=== PATIENT | male | born 1950 | race Caucasian/White ===

== ENCOUNTER → 2022-08-27 14:11 | Outpatient (CLI) | payer MEDICARE, SELFPAY ==
[2022-08-27 16:07] LABS: Add Manual Diff / Slide Review NO; Basophils Absolute Auto 100 /uL (0-100); Basophils Percent Auto 0.7 % (0-2); Eosinophils Absolute Auto 100 /uL (0-450); Eosinophils Percent Auto 1.6 % (2-4); Hematocrit 43.8 % (41-53); Hemoglobin 15.1 g/dL (13.5-17.5); Lymphocytes Absolute Auto 2100 /uL (1100-4500); Lymphocytes Percent Auto 25.6 % (25-40); Mean Corpuscular HGB Conc 34.5 % (30-36); Mean Corpuscular Hemoglobin 31.9 PG (26-34); Mean Corpuscular Volume 92.3 fL (80-100); Monocytes Absolute Auto 700 /uL (0-900); Monocytes Percent Auto 8.5 % (3-14); Neutrophils Absolute Auto 5300 /uL (1500-7000); Neutrophils Percent Auto 63.6 % (50-75); Platelet Count 185 X10^3/uL (150-400); Red Blood Cell Count 4.75 X10^6/uL (4.5-5.9); Red Cell Distribution Width 13.1 % (11.6-14.8); White Blood Cell Count 8.4 X10^3/uL (4.5-11.0)
[2022-08-27 16:39] LABS: Alanine Aminotransferase 22 IU/L (<50); Albumin 4.6 g/dL (3.5-5.0); Albumin Globulin Ratio 1.4 (1.0-2.8); Alkaline Phosphatase 86 U/L (38-126); Aspartate Aminotransferase 23 IU/L (17-59); BUN Creatinine Ratio 16.9 (6-22); Bilirubin Total 0.5 mg/dL (0.2-1.3); Blood Urea Nitrogen 14 mg/dL (9-20); Calcium 9.7 mg/dL (8.4-10.2); Carbon Dioxide 29 mmol/L (22-32); Chloride 101 mmol/L (98-107); Estimated Glomerular Filt Rate > 60 mL/min (>60); Globulin 3.3 g/dL (1.7-4.1); Glucose 95 mg/dL (80-110); HEMOLYSIS < 15 (0-50); Potassium 4.4 mmol/L (3.4-5.1); Sodium 140 mmol/L (137-145); Total Protein 7.9 g/dL (6.3-8.2)
[2022-08-27 16:42] LABS: High Sensitivity CRP - Cardiac 1.1 mg/L (1.0-3.0)
[2022-08-27 17:04] LABS: Thyroid Stimulating Hormone 1.29 uIU/mL (0.47-4.68)
[2022-08-28 03:36] LABS: x Labcorp Estim. Avg Glu (eAG) 114 mg/dL (.); x Labcorp Hemoglobin A1c 5.6 % (4.8-5.6)
[2022-08-31 12:07] LABS: Acetylcholine Receptor Bind AB 0.23 nmol/L (0.00-0.24)
[2022-09-01 10:25] LABS: MuSK Antibodies <1.0 U/mL (.)
[2022-09-02 13:04] LABS: Acetylcholine Rec Blocking AB 17 % (0-25)
== END ==
PROVIDERS: PCP Ophthalmology; Referring Provider Ophthalmology; Visit Provider Ophthalmology
DX: G51.32 Clonic hemifacial spasm, left (principal); H53.2 Diplopia; H02.402 Unspecified ptosis of left eyelid; H02.834 Dermatochalasis of left upper eyelid
CPT/HCPCS: 80053; 83036; 83519; 84443; 85025; 86140

== ENCOUNTER → 2022-09-01 11:09 | Outpatient (CLI) | payer MEDICARE, BC, SELFPAY ==
--- NOTE | 2022-09-01 | DI.MRI.S_ITS ---
PROCEDURE: MR HEAD/BRAIN WO/W CON INDICATIONS: Clonic hemifacial spasm/diplopia TECHNIQUE: Noncontrast axial T1 spin echo, axial T2 fast spin echo, sagittal and axial FLAIR, coronal T2 fast spin echo, axial gradient echo, axial diffusion and ADC through the brain. After the administration of contrast, axial and coronal and sagittal T1 spin echo with fat saturation through the brain. In this patient, additional fat saturated T1 weighted axial pre and postcontrast images were obtained through the orbits at, as well as facets rated T1 weighted postcontrast coronal images through the orbits. COMPARISON: [facility], MR, MR ANGIO HEAD WO CON, 09/01/2022, 11:40. FINDINGS: Image quality: Excellent. CSF spaces: Basal cisterns are patent. No extra-axial fluid collections. Ventricles are normal in size and shape. Brain: No midline shift. No intracranial bleeds or masses. No abnormal intracranial enhancement. There is cerebral volume loss for age. There is periventricular white matter chronic small vessel ischemic change. The brainstem appears normal. Diffusion-weighted images demonstrate no acute ischemic insults. No chronic ischemic insults. Normal intravascular flow voids are present. Skull and face: Calvarial marrow is normal in signal. In this patient with this given history, scrutiny is given to the orbits. No significant orbital abnormality can be seen. No masses or abnormal enhancement can be seen. Sinuses: Extensive right-sided paranasal sinus disease can be seen, with complete opacification of the right frontal sinus, the right ethmoid air cells, and the right maxillary sinus. There is partial opacification of the right sphenoid sinus. On these images, no findings of bony violation or intracranial extension can be seen associated with the right-sided paranasal sinus disease. Mild mucosal thickening can be seen within the left paranasal sinuses. No abnormal fluid is seen within the mastoid air cells. IMPRESSION: No masses or abnormal enhancement can be seen to explain the patient's presenting history. Extensive right-sided paranasal sinus disease seen. Dictated by: Denis Bob M.D. on 09/01/2022 at 12:04 Approved by: Denis Bob M.D. on 09/01/2022 at 12:07
--- NOTE | 2022-09-01 | DI.MRI.S_ITS ---
PROCEDURE: MR ANGIO HEAD WO CON INDICATIONS: Clonic hemifacial spasm/diplopia TECHNIQUE: Noncontrast axial 3-D [id number] MR angiogram, with 3-dimensional maximum intensity projection (MIP) reformats of the internal carotid arteries and posterior circulation then performed. COMPARISON: [facility], , MR HEAD/BRAIN WO/W CON, 09/01/2022, 11:51. FINDINGS: Image quality: Diagnostic, with note made of motion artifact. Anterior circulation: Intracranial internal carotid arteries demonstrate normal size and intraluminal flow signal. There is a diminutive left A1 segment, with a corresponding robust right A1 segment. This is considered to be a normal developmental variant of the wiyot of [place], of typically no clinical consequence. The flow within the paired anterior cerebral arteries is otherwise normal and symmetric. The flow within the middle cerebral arteries is normal and symmetric. The anterior communicating artery is seen. No stenoses, occlusions, or aneurysms. Posterior circulation: Visualized portions of the vertebral arteries demonstrate normal caliber, and join to form a normal appearing basilar artery. The flow within the posterior cerebral arteries is normal and symmetric. No stenoses, occlusions, or aneurysms. IMPRESSION: Brain MR angiogram within normal limits. Dictated by: Denis Bob M.D. on 09/01/2022 at 12:02 Approved by: Denis Bob M.D. on 09/01/2022 at 12:03
== END ==
PROVIDERS: Referring Provider Ophthalmology; Visit Provider Ophthalmology
DX: H53.2 Diplopia (principal); G51.39 Clonic hemifacial spasm, unspecified; J32.8 Other chronic sinusitis; H02.402 Unspecified ptosis of left eyelid; H02.834 Dermatochalasis of left upper eyelid
CPT/HCPCS: 70544; 70553

== ENCOUNTER 2024-08-30 14:37 | Emergency (ER) | payer MEDICARE, BC, SELFPAY ==
[2024-08-30] VITALS (8 sets, daily range): BP systolic 132–175; BP diastolic 78–92; PULSE 73–94; RESP 18; TEMP 37.1; O2SAT 97–98; BMI 39.0
--- NOTE | 2024-08-30 18:20 | ED.MALEGU ---
HPI - Male Genitourinary General Chief complaint: Urogenital-Male Stated complaint: Groin Pain Time Seen by Provider: 08/30/24 18:20 Source: patient Mode of arrival: Ambulatory History of Present Illness HPI Narrative: Patient is a 73-year-old male with a past medical history of hypertension comes into the ED from home for evaluation of scrotal swelling. States it started yesterday, has no actual pain, states that he has also been having some right lower quadrant abdominal pain however he states that this has been ongoing and persistent for ?a long time. He states that he is only here because he noticed swelling to his scrotum, states that it has slightly improved since yesterday but otherwise still swollen. No trauma no falls. No past current history or concerns for STI/STDs. Patient not complaining of any other symptoms at this time. No issues with urination. Related Data Previous Rx's ?Medication ?Instructions ?Recorded sulfamethoxazole 800 1 tab PO BID 7 days #14 tabs 08/30/24 mg-trimethoprim 160 mg tablet (Bactrim DS) Allergies Allergy/AdvReac Type Severity Reaction Status Date / Time No Known Drug Allergies Allergy Unverified 08/18/23 09:14 Review of Systems Review of Systems Narrative: General: Denies fever, chills, weight loss HEENT: Denies headache, eye drainage, eye irritation, head trauma, sore throat, voice change Cardiovascular: Denies any chest pain, palpitations, tachycardia Respiratory: Denies any shortness of breath, cough, wheeze, stridor GI/: Positive scrotal swelling Denies any abdominal pain, nausea, vomiting, diarrhea, bright red blood per rectum, melanotic stools, urinary frequency, urinary retention, dysuria, hematuria MSK: Denies any joint pain, muscle pains, swelling Skin: Denies any rashes, lesions, discoloration Neuro: Denies any headache, lightheadedness, dizziness, fainting, weakness Psych: Denies SI/HI Patient History Social History Smoking Status: Never smoker Smoking Status: Never smoker Exam Narrative Exam Narrative: General: Cooperative, well-developed, not in acute distress HEENT: Normocephalic, atraumatic, PERRLA, normal sclera, eyelids normal Neck: Active full range of motion, atraumatic Chest: Normal to inspection, negative crepitus, no overlying erythema ecchymosis Respiratory: Normal respiratory effort, not in acute respiratory distress, clear to auscultation bilaterally negative cough, wheeze, tachypnea, rhonchi, rales Cardiology: Regular rate rhythm negative gallop, murmur, rubs GI/: No tenderness to palpation, soft, non rigid, normal to inspection, exam: Erythema noted to the scrotum, however no crepitus noted no pain with palpation, the penis itself without any gross deformity no discharge starting to the head of the meatus. MSK: Full active range of motion in all 4 extremities, atraumatic, no tenderness to palpation of any bony prominences Skin: No rashes or lesions noted Neuro: Alert awake oriented x3, moves all 4 extremities spontaneously, cranial nerves intact, able to answer all questions appropriately follows commands appropriately Psych: Cooperative, negative suicidal or homicidal ideations Initial Vital Signs Initial Vital Signs: Vital Signs Temperature 98.7 F 08/30/24 14:51 Pulse Rate 94 H 08/30/24 14:51 Respiratory Rate 18 08/30/24 14:51 Blood Pressure 164/78 H 08/30/24 14:51 Pulse Oximetry 97 08/30/24 14:51 Oxygen Delivery Method Room Air 08/30/24 14:51 Course Orders Ordered: ED Orders 08/30/24 18:20 US scrotum Stat 08/30/24 18:22 CT abdomen pelvis w con Stat 08/30/24 18:36 CRP [C-Reactive Protein Quant] Stat Complete Blood Count AUTO DIFF Stat Comprehensive Metabolic Panel Stat ESR [Erythrocyte Sedimentation Rate] Stat Lactate (Lactic Acid) Stat Lipase Stat MAG [Magnesium] Stat Discontinued Medications Sodium Chloride (Normal Saline 0.9%) 1,000 mls @ 1,000 mls/hr IV BOLUS ONE Stop: 08/30/24 19:19 Last Infusion: 08/30/24 20:12 Dose: Infused Documented By: Admin: 08/30/24 18:40 Dose: 1,000 mls/hr Documented By: TRUMAN Ketorolac Tromethamine (Ketorolac 30 Mg/Ml Vial) 30 mg IV NOW ONE Stop: 08/30/24 18:21 Last Admin: 08/30/24 18:37 Dose: 30 mg Documented By: TRUMAN Vital Signs Vital signs: Vital Signs - 8 hr 08/30/24 14:51 08/30/24 19:00 08/30/24 19:01 Temperature 98.7 F Pulse Rate 94 H 74 74 Respiratory Rate 18 Blood Pressure 164/78 H Pulse Oximetry 97 97 97 Oxygen Delivery Method Room Air 08/30/24 19:01 08/30/24 19:13 08/30/24 19:13 Temperature Pulse Rate 78 Respiratory Rate Blood Pressure 171/92 H 175/85 H Pulse Oximetry 97 Oxygen Delivery Method 08/30/24 19:30 08/30/24 19:30 Temperature Pulse Rate 73 Respiratory Rate Blood Pressure 153/83 H Pulse Oximetry 98 Oxygen Delivery Method MDM - Male Genitourinary Differential Diagnosis Differential diagnosis: Likely urinary tract infection, urethritis, epididymitis, inguinal hernia and other (Lazaro's, scrotal cellulitis) Lab Data 08/30/24 18:36 08/30/24 18:36 Labs: Lab Results 08/30/24 Range/Units 18:36 WBC 7.6 (4.5-11.0) X10^3/uL RBC 4.77 (4.5-5.9) X10^6/uL Hgb 15.5 (13.5-17.5) g/dL Hct 45.3 (41-53) % MCV 95.0 (80-100) fL MCH 32.5 (26-34) PG MCHC 34.2 (30-36) % RDW 13.5 (11.6-14.8) % Plt Count 190 (150-400) X10^3/uL Neut % (Auto) 57.4 (50-75) % Lymph % (Auto) 29.0 (25-40) % [place] % (Auto) 11.2 (3-14) % Eos % (Auto) 1.7 L (2-4) % Baso % (Auto) 0.7 (0-2) % Neut # (Auto) 4400 (2555-2336) /uL Lymph # (Auto) 2200 (3088-3606) /uL [place] # (Auto) 900 (0-900) /uL Eos # (Auto) 100 (0-450) /uL Baso # (Auto) 100 (0-100) /uL ESR 8 (0-15) MM/HR Sodium 140 (137-145) mmol/L Potassium 4.1 (3.4-5.1) mmol/L Chloride 107 (98-107) mmol/L Carbon Dioxide 23 (22-32) mmol/L BUN 12 (9-20) mg/dL Creatinine 0.89 (0.66-1.25) mg/dL Estimated GFR > 60 (>60) mL/min BUN/Creatinine Ratio 13.5 (6-22) Glucose 92 (70-99) mg/dL Lactate 1.0 (0.7-2.1) mmol/L Calcium 9.2 (8.4-10.2) mg/dL Magnesium 2.0 (1.6-2.3) mg/dL Total Bilirubin 0.8 (0.2-1.3) mg/dL AST 31 (17-59) IU/L ALT 36 (<50) IU/L Alkaline Phosphatase 86 (38-126) U/L C-Reactive Protein 1.7 H (<1.0) mg/dL Total Protein 7.5 (6.3-8.2) g/dL Albumin 4.3 (3.5-5.0) g/dL Globulin 3.2 (1.7-4.1) g/dL Albumin/Globulin Ratio 1.3 (1.0-2.8) Lipase 36 (23-300) U/L Urine Dip Bedside Urine Glucose Negative Bedside Urine Bilirubin - Negative Bedside Urine Ketone - Negative Urine Specific [place] 1.010 Bedside Urine Occult Blood - Negative Bedside Urine pH 5.5 Bedside Urine Protein - Negative Bedside Urine Urobilinogen - Negative Bedside Urine Nitrite - Negative Bedside Urine Leukocytes - Negative Esterase Imaging Data Ultrasound testicle.: Radiologist's Impression: [place] [address] Ultrasound Report Signed Patient: Raad Felton MR#: [id number] : 1950 Acct:[id number] Age/Sex: 73 / M Date of Service: 08/30/24 Loc: ED Accession Number: [id number] Procedure: US scrotum Ordering Provider: Mannie Aguilar D.O. PROCEDURE: US SCROTUM INDICATIONS: swelling testicles TECHNIQUE: Real-time scanning was performed of the scrotum and testicles, with image documentation. Color and pulse Doppler interrogation was performed of both testicles. COMPARISON: None. FINDINGS: Right: Testicle is normal in size at 3.9 x 2.8 x 2.6 cm, and homogenous in echotexture. Epididymis is normal in overall size and morphology. 5 mm epididymal cyst. Large simple hydrocele. Overlying scrotal wall thickening. Left: Testicle is normal in size at 4.0 x 2.5 x 3.1 cm, and homogeneous in echotexture. Epididymis is normal in overall size and morphology. Large simple hydrocele. Scrotal wall thickening. Doppler: Color and pulse Doppler demonstrate normal and symmetric arterial flow in both testicles. IMPRESSION: Large testicular hydroceles. Scrotal thickening. No evidence of orchitis or epididymitis. CT scan - abdomen/pelvis: Radiologist's Impression: [address] [address] [address] Scan Report Signed with Addenda Patient: Raad Felton MR#: [id number] : 1950 Acct:[id number] Age/Sex: 73 / M Date of Service: 08/30/24 Loc: ED Accession Number: [id number] Procedure: CT abdomen pelvis w con Ordering Provider: Mannie Aguilar D.O. ADDENDUMThis report includes an Addendum and supersedes previous reports for this exam. PROCEDURE: CT ABDOMEN PELVIS W CON INDICATIONS: LrQ abd/groin pain TECHNIQUE: After the administration of intravenous contrast, axial sections acquired from the lung bases to the pubic symphysis. Coronal and sagittal reformats were performed. For radiation dose reduction, the following was used: automated exposure control, adjustment of mA and/or kV according to patient size. COMPARISON: None. FINDINGS: Image quality: Diagnostic. Lower Chest: No significant findings. ABDOMEN: Liver: No solid mass. Gallbladder: No radiopaque gallstones or wall thickening. Biliary ducts: No biliary dilation. Pancreas: No ductal dilation. Spleen: Size is within normal limits. Adrenal Glands: No adrenal nodules. Kidneys and Ureters: No hydronephrosis. No solid mass. Simple right renal cyst. Stomach and Bowel: Descending colon is collapsed. However, there is several small areas of very minimal pericolonic stranding. Peritoneum: No abnormal intraperitoneal fluid. No free air. Ventral Wall: No significant ventral hernia. Abdominal Nodes: No retroperitoneal or mesenteric adenopathy by size criteria. Vessels: Aorta and inferior vena cava are normal in size. PELVIS: Pelvic Organs: Unremarkable. Bladder: No bladder wall thickening, accounting for underdistention. Pelvic Nodes: No enlarged lymph nodes. Miscellaneous: No inguinal hernias are seen. Bones: No aggressive osseous abnormality. IMPRESSION: Very minimal appearance of descending colonic stranding. Very early colitis cannot be definitively excluded. Dictated by: Joyce Pena M.D. on 08/30/2024 at 19:31 Approved by: Joyce Pena M.D. on 08/30/2024 at 19:33 ADDENDUM: Fluid is present in the anterior perineum. There is appearance bilateral hydroceles. Otherwise, scrotal evaluation is limited. No definitive soft tissue air. Dictated by: Joyce Pena M.D. on 08/30/2024 at 19:40 Approved by: Joyce Pena M.D. on 08/30/2024 at 19:40 MDM Narrative Medical decision making narrative: Patient is a 73-year-old male with past medical histor of hypertension presenting to the emergency department from home for evaluation of scrotal swelling, states it started yesterday no trauma no falls no actual pain, also complaining of some right lower quadrant abdominal pain has been ongoing intermittent for the past several months, states that he has no actual difficulty urinating or pain. States it swelling has slightly improved since yesterday. Exam the scrotal skin is slightly thickened and erythematous but no palpable crepitus, the remainder of his exam is normal. Patient had lab work urinalysis CT and ultrasound performed here. CT scan just showing hydroceles possible early colitis however patient not having any leukocytosis on lab work. Ultrasound also showing bilateral hydroceles and just thickened scrotal wall, more consistent with scrotal cellulitis therefore patient will be treated for this. Patient will given 1st dose of antibiotics here and instructed to follow up with Urology and primary care in outpatient setting. Patient was given strict return precautions verbalized understanding of this and agrees to being discharged home with outpatient follow up Discharge Plan Departure Patient Disposition: Home Clinical Impression: Cellulitis of scrotum, Hydrocele in adult Instructions: DI for Cellulitis -- Adult Activity Restrictions/Additional Instructions: Please follow up with Urology and primary care in outpatient setting Please read the discharge instructions sheet carefully and bring all papers to all doctor follow-up visits, as it may contain information that your doctor may want to see. Disease processes change and evolve, if your symptoms worsen or if you develop any new symptoms that are concerning to you please return for evaluation. Your evaluation today does not show any evidence of any life-threatening/serious illnesses requiring admission to the hospital or surgery. Please follow-up with your doctor for re-evaluation in approximately 1 day. Seek immediate medical attention for any worrisome symptoms. *If you do not have a primary care provider please contact the [facility] Resource line at [phone]. They will ask some questions about your medical history and help get you set up with a doctor in the community. Prescriptions: New sulfamethoxazole-trimethoprim [Bactrim DS] 800-160 mg tablet 1 tab PO BID 7 Days Qty: 14 0RF Referrals: Ethan Jones DO [Physician, Urology] Referral Note: Scrotal cellulitis with bilateral hydrocele Stand Alone Forms: Patient Portal/API
[2024-08-30] MEDS: KETOROLAC 30 MG/ML VIAL IV (18:37)
[2024-08-30] MEDS: SODIUM CHLORIDE 0.9% 1,000 ML 1000 ML IV (18:40)
[2024-08-30 18:45] LABS: Add Manual Diff / Slide Review NO; Hematocrit 45.3 % (41-53); Hemoglobin 15.5 g/dL (13.5-17.5); Lymphocytes Absolute Auto 2200 /uL (1100-4500); Mean Corpuscular HGB Conc 34.2 % (30-36); Mean Corpuscular Hemoglobin 32.5 PG (26-34); Mean Corpuscular Volume 95.0 fL (80-100); Platelet Count 190 X10^3/uL (150-400)
[2024-08-30 18:57] LABS: Alanine Aminotransferase 36 IU/L (<50); Albumin 4.3 g/dL (3.5-5.0); Albumin Globulin Ratio 1.3 (1.0-2.8); Alkaline Phosphatase 86 U/L (38-126); Blood Urea Nitrogen 12 mg/dL (9-20); Calcium 9.2 mg/dL (8.4-10.2); Carbon Dioxide 23 mmol/L (22-32); Chloride 107 mmol/L (98-107); Estimated Glomerular Filt Rate > 60 mL/min (>60); Globulin 3.2 g/dL (1.7-4.1); Glucose 92 mg/dL (70-99); HEMOLYSIS 20 (0-50); Lipase 36 U/L (23-300); Potassium 4.1 mmol/L (3.4-5.1); Sodium 140 mmol/L (137-145); Total Protein 7.5 g/dL (6.3-8.2)
[2024-08-30 18:58] LABS: Lactate (Lactic Acid) 1.0 mmol/L (0.7-2.1)
[2024-08-30 19:04] LABS: Magnesium 2.0 mg/dL (1.6-2.3)
[2024-08-30] MEDS: TRIMETH/SULFA 160/800 (DS) TABLET 1 TAB PO (21:04)
== END 2024-08-30 21:03 | disposition home or self-care (01) ==
PROVIDERS: Emergency Provider Student in an Organized Health Care Education/Training Program
DX: N49.2 Inflammatory disorders of scrotum (principal); N43.3 Hydrocele, unspecified
CPT/HCPCS: 36415; 74177; 76870; 80053; 81003; 83605; 83690; 83735; 85025; 85651; 86140; 93975; 96361; 96374; 99284; J1885; Q9967

== ENCOUNTER → 2024-10-17 09:05 | Outpatient (CLI) | payer MEDICARE, BC, SELFPAY ==
--- NOTE | 2024-10-17 09:07 | DI.CT.S_ITS ---
PROCEDURE: CT SINUS SCREEN WO CON INDICATIONS: frequent infection/facial swelling TECHNIQUE: Noncontrast 3.0 mm axial images acquired from the frontal sinuses to the mid- sella, with coronal and sagittal reformats. For radiation dose reduction, the following was used: automated exposure control, adjustment of mA and/or kV according to patient size. COMPARISON: None. FINDINGS: Image quality: Excellent. Maxillary Sinuses: No bony remodeling or destruction. Severe coastal thickening in the right maxillary sinus causes complete opacification of the sinus. Mild left maxillary sinus mucosal thickening. Ethmoid Air Cells: No bony remodeling or destruction. Severe right ethmoid air cell mucosal thickening. Left ethmoid air cells are clear. Sphenoid Sinuses: No bony remodeling or destruction. Sinuses are clear. Right maxillary sinus osseous wall thickening. Frontal Sinuses: No bony remodeling or destruction. Severe mucosal thickening causes complete opacification of the right frontal sinus. Left frontal sinus is clear. Ostiomeatal Complexes: Right ostiomeatal unit is opacified. Left ostiomeatal unit is patent. No Magaly cells. Miscellaneous: Visualized intra-orbital contents are normal. No romi bullosa or paradoxical turbinate curvature. Nasal septum is deviated to the right. 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 Mild chronic left maxillary sinusitis Dictated by: Andreea Castellon MD, PhD on 10/17/2024 at 12:35 Approved by: Andreea Castellon MD, PhD on 10/17/2024 at 12:37
[2024-10-17 09:37] LABS: Add Manual Diff / Slide Review NO; Hematocrit 44.3 % (41-53); Hemoglobin 15.1 g/dL (13.5-17.5); Lymphocytes Absolute Auto 1700 /uL (1100-4500); Mean Corpuscular HGB Conc 34.0 % (30-36); Mean Corpuscular Hemoglobin 32.2 PG (26-34); Mean Corpuscular Volume 94.7 fL (80-100); Platelet Count 202 X10^3/uL (150-400)
[2024-10-17 09:52] LABS: Alanine Aminotransferase 37 IU/L (<50); Albumin 4.4 g/dL (3.5-5.0); Albumin Globulin Ratio 1.4 (1.0-2.8); Alkaline Phosphatase 84 U/L (38-126); Blood Urea Nitrogen 14 mg/dL (9-20); Calcium 9.6 mg/dL (8.4-10.2); Carbon Dioxide 24 mmol/L (22-32); Chloride 104 mmol/L (98-107); Estimated Glomerular Filt Rate > 60 mL/min (>60); Globulin 3.2 g/dL (1.7-4.1); Glucose 110 mg/dL (70-99); HEMOLYSIS < 15 (0-50); Potassium 4.3 mmol/L (3.4-5.1); Sodium 139 mmol/L (137-145); Total Protein 7.6 g/dL (6.3-8.2)
[2024-10-17 10:12] LABS: Hemoglobin A1C% w Est Avg Glu 5.7 % (4.0-6.0)
== END ==
LOC: CT 09:07
PROVIDERS: PCP Physician Assistant Medical; Referring Provider Physician Assistant Medical; Visit Provider Physician Assistant Medical
DX: J32.8 Other chronic sinusitis (principal); R22.0 Localized swelling, mass and lump, head; I10 Essential (primary) hypertension; R73.9 Hyperglycemia, unspecified; Z91.030 Bee allergy status; Z86.19 Personal history of other infectious and parasitic diseases
CPT/HCPCS: 36415; 70486; 80053; 83036; 85025